=== PATIENT | female | born 1980 | race Caucasian/White ===

== ENCOUNTER → 2016-07-19 | Outpatient (CLI) | payer BC ==
[2015-11-18 09:02] VITALS: BP 105/68
[~2016-07-19] MED LIST: ALPR1TAB2 PO; CYCL-331 PO; FLUT9.9S NS; GABA-586 PO; GABA600T PO; HYDR-2758 PO; LISD40CA3 PO; MELA3TAB2 PO; OMEP20CA9 PO; ONDA4TAB7 PO; ROPI0.5T PO; TRAM50TA PO; VENL75CA PO
--- NOTE | 2016-07-19 11:59 | RAD ---
Chest, 2 views, 07/19/2016: History: Low blood pressure, chest pain Comparison is made to a study from 11/15/2015. The heart size and pulmonary vascularity are normal. The lungs are clear. There is no evidence of pleural fluid. IMPRESSION: No acute cardiopulmonary abnormality is detected.
== END | disposition home or self-care (01) ==
LOC: DXRADRC 07:46
PROVIDERS: ATTEND Physician Assistant Medical
DX: R07.9 Chest pain, unspecified (principal); I95.9 Hypotension, unspecified
CPT/HCPCS: 71020

== ENCOUNTER → 2017-01-09 | Outpatient (CLI) | payer OTHER ==
[2015-11-18 09:02] VITALS: BP 105/68
--- NOTE | 2017-01-09 12:11 | RAD ---
Indication: Pain in the lateral aspect of the left foot. Time of exam 11:56 AM The metatarsals are intact. The phalanges are intact. The midfoot and hindfoot are unremarkable apart from a small plantar calcaneal spur. No fractures are seen. Impression: No acute bony abnormality is detected.
== END | disposition home or self-care (01) ==
LOC: RAD 11:40
PROVIDERS: ATTEND Physician Assistant Medical
DX: M77.32 Calcaneal spur, left foot (principal); F17.200 Nicotine dependence, unspecified, uncomplicated; Z72.89 Other problems related to lifestyle
CPT/HCPCS: 73620

== ENCOUNTER → 2018-03-05 | Outpatient (CLI) | payer OTHER ==
[2015-11-18 09:02] VITALS: BP 105/68
[~2018-03-05] MED LIST changes: +HYDR-2155 PO; -HYDR-2758 PO
--- NOTE | 2018-03-05 16:48 | RAD ---
RS Compliance Statement: One or more of the following individualized dose reduction techniques were utilized for this examination: 1. Automated exposure control 2. Adjustment of the mA and/or kV according to patient size 3. Use of iterative reconstruction technique CT maxillofacial without contrast March 05, 2018 INDICATION: Chronic sinusitis. Antibiotics for one month. History of sinus surgery with septoplasty. COMPARISON: None available TECHNIQUE: Multiple axial CT images of the paranasal sinuses were obtained without venous contrast. Coronal and sagittal reformats are provided. FINDINGS: No suspicious amount is identified involving the visualized portions of brain parenchyma and posterior fossa. Orbits are normal in appearance. Globes are spherical and contour. No intraconal or extraconal mass is identified. There is a small mucus retention cyst in left maxillary sinus measuring 8 mm. Maxillary antrostomy changes are identified with infundibulectomy and uncinectomy. Nasal septum is predominantly midline. Nasal bones are intact. Skull base is intact. No osseous erosions are identified. Sphenoid sinuses are well aerated. Ethmoid air cells are well aerated. Mastoid air cells are well aerated. Temporomandibular joints are well aligned. IMPRESSION: Postoperative changes are identified from sinus decompression. There is a small mucus retention cyst in the left maxillary sinus. Electronically signed by: Cathleen Avila MD (03/05/2018 4:43 PM) [id number]
== END | disposition home or self-care (01) ==
LOC: CT 16:01
PROVIDERS: ATTEND Physician Assistant Medical
DX: J32.9 Chronic sinusitis, unspecified (principal); J34.1 Cyst and mucocele of nose and nasal sinus
CPT/HCPCS: 70486

== ENCOUNTER → 2018-07-22 | Outpatient (CLI) | payer OTHER ==
[2015-11-18 09:02] VITALS: BP 105/68
[~2018-07-22] MED LIST changes: +OMEP20CA10 PO; -OMEP20CA9 PO
[2018-07-22 14:57] LABS: BASO % 0 % (0-3); EOS # 0.2 x10^3/uL (0.0-0.7); EOS % 2 % (0-3); HEMOGLOBIN 14.8 g/dL (12.0-15.5); LYMPH # 2.3 x10^3/uL (1.0-4.8); LYMPH % 28 % (24-48); MEAN CORPUSCULAR HEMOGLOBIN 31 pg (25-35); MEAN CORPUSCULAR HGB CONC 34 g/dL (31-37); MEAN CORPUSCULAR VOLUME 92 fL (79-100); MONO # 0.4 x10^3/uL (0.0-1.1); MONO % 5 % (0-9); NEUT # 5.3 x10^3uL (1.8-7.7); NEUT % 64 % (31-73); PLATELET COUNT 324 x10^3/uL (140-400); RED BLOOD COUNT 4.81 x10^6/uL (3.50-5.40); WHITE BLOOD COUNT 8.2 x10^3/uL (4.0-11.0)
[2018-07-22 15:07] LABS: ALBUMIN 4.2 g/dL (3.4-5.0); ALBUMIN/GLOBULIN RATIO 1.2 (1.0-1.7); CALCIUM 9.3 mg/dL (8.5-10.1); CREATININE 0.6 mg/dL (0.6-1.0); GFR 111.9; MAGNESIUM 2.2 mg/dL (1.8-2.4); POTASSIUM 3.9 mmol/L (3.5-5.1); TOTAL BILIRUBIN 0.4 mg/dL (0.2-1.0); TOTAL PROTEIN 7.8 g/dL (6.4-8.2)
== END | disposition home or self-care (01) ==
LOC: PMG 14:12
PROVIDERS: ATTEND Registered Nurse
DX: R00.0 Tachycardia, unspecified (principal)
CPT/HCPCS: 36415; 80053; 83735; 85025

== ENCOUNTER → 2018-07-24 | Outpatient (CLI) | payer OTHER ==
[2015-11-18 09:02] VITALS: BP 105/68
[2018-07-24 13:11] LABS: CALCIUM 9.6 mg/dL (8.5-10.1); CREATININE 0.6 mg/dL (0.6-1.0); GFR 111.9; POTASSIUM 3.9 mmol/L (3.5-5.1)
== END | disposition home or self-care (01) ==
LOC: LAB 12:35
PROVIDERS: ATTEND Registered Nurse
DX: R89.9 Unspecified abnormal finding in specimens from other organs, systems and tissues (principal)
CPT/HCPCS: 36415; 80048

== ENCOUNTER → 2019-05-27 | Outpatient (CLI) | payer BC ==
[2015-11-18 09:02] VITALS: BP 105/68
[~2019-05-27] MED LIST changes: -MELA3TAB2 PO; +MELA3TAB4 PO; -OMEP20CA10 PO; +OMEP20CA16 PO
--- NOTE | 2019-05-27 10:53 | RAD ---
SHOULDER 2+V RIGHT DATE: 05/27/2019 12:00 AM INDICATION: Shoulder pain COMPARISON: None. FINDINGS: Bones: There is no evidence of acute fracture or dislocation. Joints: Mild degenerative changes of the acromioclavicular joint. Glenohumeral joint is congruent. The acromiohumeral distance is not narrowed. Miscellaneous: No abnormal soft tissue calcifications in the shoulder. IMPRESSION: No acute osseous abnormality. Mild AC joint degenerative changes. Electronically signed by: Timoteo Rodrgíuez MD (05/27/2019 10:50 AM) [id number]
--- NOTE | 2019-05-27 11:04 | RAD ---
CERVICAL SPINE 2-3V DATE: 05/27/2019 12:00 AM INDICATION: Neck pain COMPARISON: None. FINDINGS: The cervical spine is visualized to the level of the cervicothoracic junction on the lateral views. Bones/Alignment: No evidence of acute fracture. There is no listhesis. Normal alignment of the lateral masses of C1 on C2. Joints: Mild degenerative disc disease. The facets are normally aligned. Soft tissue: No significant prevertebral soft tissue swelling. IMPRESSION: Mild cervical spondylosis. Electronically signed by: Timoteo Rodríguez MD (05/27/2019 11:01 AM) [id number]
== END | disposition home or self-care (01) ==
LOC: RAD 10:27
PROVIDERS: ATTEND Registered Nurse
DX: M47.812 Spondylosis without myelopathy or radiculopathy, cervical region (principal); M19.011 Primary osteoarthritis, right shoulder; M50.30 Other cervical disc degeneration, unspecified cervical region
CPT/HCPCS: 72040; 73030

== ENCOUNTER → 2019-07-07 | Outpatient (CLI) | payer BC ==
[2015-11-18 09:02] VITALS: BP 105/68
--- NOTE | 2019-07-07 17:20 | RAD ---
EXAM: BILATERAL DIGITAL DIAGNOSTIC MAMMOGRAPHY and targeted left breast ultrasound.. HISTORY: 39-year-old woman presenting with a palpable lump in the lateral left breast that by the time of presentation has markedly decreased in size, barely detectable on self exam now.. TECHNIQUE: Bilateral full field digital images were obtained in CC and MLO projections as well as implant displaced views. 2-D and 3-D technique was utilized. Computer-aided detection was applied. Targeted ultrasound of the area of concern in the posterior upper outer left breast was also performed. COMPARISON: Limited left breast ultrasound of May 27, 2004. COMPOSITION: B. There are scattered areas of fibroglandular density. FINDINGS: There are no suspicious masses, microcalcifications or architectural distortion. Bilateral subpectoral saline implants are partially imaged. No mammographic correlate to the area of palpable concern in the lateral left breast is seen but the marker identifying the area of clinical concern is not satisfactorily imaged. Targeted ultrasound was therefore pursued in further evaluation. Targeted ultrasound of the left breast in the area of concern identified at the 3:00 position 10 cm from the nipple a sonographically benign 8 mm lymph node but otherwise no sonographic findings. Incidentally, this approximates the area that was previously imaged by ultrasound 15 years ago. BI-RADS CATEGORY: 2: Benign. RECOMMENDATION: 1. Recommend clinical management of the area of patient's reported palpable concern which may include biopsy if there are any clinically suspicious findings. In the absence of any clinically suspicious findings, recommend routine screening next due in one year. The patient and to determine the systemic targeted for next mammogram. Electronically signed by: Earlene Vasquez MD (07/07/2019 5:17 PM) [id number]
== END ==
LOC: MAMMO 12:54
PROVIDERS: ATTEND Family Medicine
DX: N63.42 Unspecified lump in left breast, subareolar (principal)
CPT/HCPCS: 76641; 77066; G0279; 77062

== ENCOUNTER 2020-01-21 12:54 | Emergency (ER) | payer BC ==
[~2020-01-21] VITALS: Ht 157.5 cm; Wt 62.0 kg
[2020-01-21 13:29] LABS: BASO % 0 % (0-3); EOS # 0.2 x10^3/uL (0.0-0.7); EOS % 3 % (0-3); HEMATOCRIT 39.7 % (36.0-47.0); HEMOGLOBIN 13.4 g/dL (12.0-15.5); LYMPH # 1.8 x10^3/uL (1.0-4.8); LYMPH % 26 % (24-48); MEAN CORPUSCULAR HEMOGLOBIN 32 pg (25-35); MEAN CORPUSCULAR HGB CONC 34 g/dL (31-37); MEAN CORPUSCULAR VOLUME 93 fL (79-100); MONO # 0.4 x10^3/uL (0.0-1.1); MONO % 6 % (0-9); NEUT # 4.5 x10^3uL (1.8-7.7); NEUT % 65 % (31-73); PLATELET COUNT 318 x10^3/uL (140-400); RED BLOOD COUNT 4.26 x10^6/uL (3.50-5.40); RED CELL DISTRIBUTION WIDTH 13.2 % (11.5-14.5); WHITE BLOOD COUNT 6.8 x10^3/uL (4.0-11.0)
--- NOTE | 2020-01-21 13:29 | RAD ---
PA and lateral views of the chest. Comparison: 07/19/2016. Indication: Shortness of breath Findings: The heart size is normal. No pneumothorax or effusion. No air space or interstitial disease. The bon y structures are intact. Impression: 1. No acute cardiopulmonary process. Electronically signed by: Jethro Foster MD (01/21/2020 1:27 PM) [id number]
[2020-01-21 13:35] LABS: CALCIUM 8.6 mg/dL (8.5-10.1); CREATININE 0.6 mg/dL (0.6-1.0); GFR 111.3; POTASSIUM 3.7 mmol/L (3.5-5.1)
[2020-01-21 13:41] LABS: ALBUMIN 3.9 g/dL (3.4-5.0); ALBUMIN/GLOBULIN RATIO 1.2 (1.0-1.7); TOTAL BILIRUBIN 0.2 mg/dL (0.2-1.0); TOTAL PROTEIN 7.2 g/dL (6.4-8.2)
--- NOTE | 2020-01-21 13:58 | PHYS DOC ---
Past History Past Medical History: Anxiety, Depression, Other Additional Past Medical Histor: POTS Past Surgical History: Hysterectomy, Other Smoking: Non-smoker Alcohol Use: Occasionally Drug Use: None Adult General Chief Complaint Chief Complaint: Palpitations HPI HPI Patient is 39-year-old female past medical history of pots syndrome who presents to the emergency room after having an episode of tachycardia with syncope. This is happened to her previously. Typically when this happens she requires IV fluids. She called her fish and game warden today who recommended she come to the emergency room to get IV fluids and work-up to ensure her electrolytes were normal. They will see her in clinic later this week. She denies any other symptoms. She has been having intermittent palpitations for the last couple days which is not unusual for her. She states she is typically able to control her syndrome without difficulty. Review of Systems Review of Systems Complete ROS is negative unless otherwise documented in HPI Current Medications Current Medications Current Medications Medications (Trade) Dose Ordered Sig/Lucy Start Time Stop Time Status Last Admin Dose Admin Sodium Chloride 1,000 ml @ 1,000 mls/hr 1X ONCE 01/21/20 14:00 01/21/20 14:59 Allergies Allergies Allergies Coded Allergies Type Severity Reaction Last Updated Verified codeine Allergy Intermediate HIVES 09/23/13 Yes latex Allergy Intermediate HIVES 09/23/13 Yes Physical Exam Physical Exam General: Awake, alert, NAD. Well Nourished, well hydrated. Cooperative HEENT: Atraumatic, EOMI, PERRL, airway patent, moist oral mucosa Neck: Supple, trachea midline Respiratory: CTA bilaterally, normal effort, no wheezing/crackles CV: RRR, no murmur, cap refill <2 GI: Soft, nondistended, nontender, no masses MSK: No obvious deformities Skin: Warm, dry, intact Neuro: A&O x3, speech NL, sensory and motor grossly intact, no focal deficits Psych: Normal affect, normal mood, not suicidal or homicidal Current Patient Data Vital Signs Vital Signs Date Time Temp Pulse Resp B/P (MAP) Pulse Ox O2 Delivery O2 Flow Rate FiO2 01/21/20 13:25 97.9 107 18 123/83 (96) 99 Room Air Lab Results Laboratory Tests Test 01/21/20 13:08 White Blood Count 6.8 x10^3/uL (4.0-11.0) Red Blood Count 4.26 x10^6/uL (3.50-5.40) Hemoglobin 13.4 g/dL (12.0-15.5) Hematocrit 39.7 % (36.0-47.0) Mean Corpuscular Volume 93 fL (79-100) Mean Corpuscular Hemoglobin 32 pg (25-35) Mean Corpuscular Hemoglobin Concent 34 g/dL (31-37) Red Cell Distribution Width 13.2 % (11.5-14.5) Platelet Count 318 x10^3/uL (140-400) Neutrophils (%) (Auto) 65 % (31-73) Lymphocytes (%) (Auto) 26 % (24-48) Monocytes (%) (Auto) 6 % (0-9) Eosinophils (%) (Auto) 3 % (0-3) Basophils (%) (Auto) 0 % (0-3) Neutrophils # (Auto) 4.5 x10^3uL (1.8-7.7) Lymphocytes # (Auto) 1.8 x10^3/uL (1.0-4.8) Monocytes # (Auto) 0.4 x10^3/uL (0.0-1.1) Eosinophils # (Auto) 0.2 x10^3/uL (0.0-0.7) Basophils # (Auto) 0.0 x10^3/uL (0.0-0.2) Sodium Level 138 mmol/L (136-145) Potassium Level 3.7 mmol/L (3.5-5.1) Chloride Level 103 mmol/L (98-107) Carbon Dioxide Level 26 mmol/L (21-32) Anion Gap 9 (6-14) Blood Urea Nitrogen 5 mg/dL (7-20) L Creatinine 0.6 mg/dL (0.6-1.0) Estimated GFR (Cockcroft-Gault) 111.3 BUN/Creatinine Ratio 8 (6-20) Glucose Level 97 mg/dL (70-99) Calcium Level 8.6 mg/dL (8.5-10.1) Total Bilirubin 0.2 mg/dL (0.2-1.0) Aspartate Amino Transferase (AST) 14 U/L (15-37) L Alanine Aminotransferase (ALT) 30 U/L (14-59) Alkaline Phosphatase 64 U/L (46-116) Total Protein 7.2 g/dL (6.4-8.2) Albumin 3.9 g/dL (3.4-5.0) Albumin/Globulin Ratio 1.2 (1.0-1.7) EKG EKG [] Radiology/Procedures Radiology/Procedures [] Heart Score Risk Factors: Risk Factors: DM, Current or recent (<one month) smoker, HTN, HLP, family history of CAD, obesity. Risk Scores: Risk Factors: DM, Current or recent (<one month) smoker, HTN, HLP, family history of CAD, obesity. Course & Med Decision Making Course & Med Decision Making Pertinent Labs and Imaging studies reviewed. (See chart for details) Patient is 39-year-old female who has a history of pot syndrome who presents to the emergency room after having an episode of palpitations and syncope. This is not common for her. She follows with a fish and game warden. Patient is well- appearing. We will give her IV fluids as she states this is her typical treatment. She will follow up with cardiology next week. Electrolytes and cardiac work-up were negative. Patient's test results and vitals while in the ED were fully reviewed and discussed with the patient. Patient is stable and at this time does not need admission to the hospital. We have discussed strict return precautions and the importance of following up with their Primary Care Physician. Patient stated understanding and was given an opportunity to ask any questions. Patient is in agreement with plan. Dragon Disclaimer Dragon Disclaimer This electronic medical record was generated, in whole or in part, using a voice recognition dictation system. Departure Departure: Impression: Primary Impression: POTS (postural orthostatic tachycardia syndrome) Disposition: 01 DC HOME SELF CARE/HOMELESS Condition: STABLE Referrals: DELIA WEAVER (PCP) Patient Instructions: Postural Orthostatic Tachycardia Syndrome JOLIE MOSES MD Jan 21, 2020 13:58
[2020-01-21] MEDS ORDERED: IV NORMAL SALINE 1,000ML 1,000 ML IV ONE (14:00)
[2020-01-21 14:19] LABS: BACTERIA,URINE 0 /HPF (0-FEW); BILIRUBIN,URINE NEG (NEG); CLARITY,URINE CLEAR; COLOR,URINE YELLOW; GLUCOSE,URINE NEG (NEG); NITRITE,URINE NEG (NEG); RBC,URINE 0 /HPF (0-2); SQUAMOUS EPITHELIAL CELL,UR OCC /LPF; WBC,URINE 0 /HPF (0-4)
[2020-01-21 14:20] LABS: UROBILINOGEN,URINE 0.2 mg/dL (0.2 mg/dL)
--- NOTE | 2020-01-21 15:28 | EKG ---
[address] [address] Test Date: 2020-01-21 Test Time: 13:01:43 Pat Name: RAN HORTON Department: Room: Gender: F Tube Room Cashier: MADAI : 1980 Requested By: JOLIE MOSES Order Number: [id number] Reading MD: Measurements Intervals [place] Rate: 95 P: 61 [place]: 106 QRS: 85 QRSD: 88 T: 48 QT: 348 QTc: 441 Interpretive Statements SINUS RHYTHM R-S TRANSITION ZONE IN V LEADS DISPLACED TO THE LEFT S1,S2,S3 PATTERN OTHERWISE NORMAL ECG RI6.02 No previous ECG available for comparison
[2020-01-21 16:00] VITALS: BP 128/67
== END 2020-01-21 16:00 | disposition home or self-care (01) ==
LOC: ER 12:54
DX: I49.8 Other specified cardiac arrhythmias (principal); R55 Syncope and collapse; F41.9 Anxiety disorder, unspecified; F32.9 Major depressive disorder, single episode, unspecified; Z88.5 Allergy status to narcotic agent; Z91.040 Latex allergy status
CPT/HCPCS: 36415; 71046; 80053; 81001; 85025; 93005; 96360; 96361; 99285; J7030

== ENCOUNTER 2021-02-28 09:27 | Emergency (ER) | payer BC, OTHER ==
[~2021-02-28] VITALS: Ht 157.5 cm; Wt 62.0 kg
[2021-02-28 09:27] VITALS: BP 99/48
[~2021-02-28 09:27] MED LIST changes: -CYCL-331 PO; +CYCL10TA19 PO
--- NOTE | 2021-02-28 09:44 | RAD ---
EXAM: Chest, single view. HISTORY: Chest pain. COMPARISON: 01/21/2020 FINDINGS: A frontal view of the chest is obtained. There is no infiltrate, pleural effusion or pneumo thorax. The heart is normal in size. There are incidental implanted breast prostheses. IMPRESSION: No acute pulmonary finding. Electronically signed by: Valerie Charles MD (02/28/2021 9:42 AM) [id number]
--- NOTE | 2021-02-28 09:51 | EKG ---
[address] [address] Test Date: 2021-02-28 Test Time: 09:33:09 Pat Name: RAN HORTON Department: Room: Gender: F Circuit Recorder: GUNJAN : 1980 Requested By: RAMON JEREZ Order Number: [id number] Reading MD: Yossi Rosales MD Measurements Intervals [place] Rate: 86 P: 0 PA: 102 QRS: 90 QRSD: 86 T: 24 QT: 358 QTc: 431 Interpretive Statements SINUS RHYTHM Electronically Signed On 02-28-2021 15:32:18 SCALE ATTENDANT by Yossi Rosales MD
[2021-02-28 09:58] LABS: BASO # 0.1 x10^3/uL (0.0-0.2); BASO % 1 % (0-3); EOS # 0.3 x10^3/uL (0.0-0.7); EOS % 3 % (0-3); HEMATOCRIT 43.6 % (36.0-47.0); HEMOGLOBIN 14.3 g/dL (12.0-15.5); LYMPH # 2.1 x10^3/uL (1.0-4.8); LYMPH % 21 % (24-48); MEAN CORPUSCULAR HEMOGLOBIN 31 pg (25-35); MEAN CORPUSCULAR HGB CONC 33 g/dL (31-37); MEAN CORPUSCULAR VOLUME 94 fL (79-100); MONO # 0.5 x10^3/uL (0.0-1.1); MONO % 5 % (0-9); NEUT % 70 % (31-73); PLATELET COUNT 318 x10^3/uL (140-400); RED BLOOD COUNT 4.64 x10^6/uL (3.50-5.40); RED CELL DISTRIBUTION WIDTH 13.4 % (11.5-14.5); WHITE BLOOD COUNT 10.1 x10^3/uL (4.0-11.0)
--- NOTE | 2021-02-28 09:58 | PHYS DOC ---
Past History Past Medical History: Anxiety, Depression, Other Additional Past Medical Histor: POTS Past Surgical History: Hysterectomy, Other Smoking: Non-smoker Alcohol Use: Occasionally Drug Use: None General Adult EDM: Chief Complaint: CHEST PAIN HPI: HPI: 40-year-old female presents with chest pain and shortness of breath. The patient had COVID-19 about 2 weeks ago. She started having increased shortness of breath and central chest discomfort the last couple of days. It was most prominent last night and continues today. Is moderate in intensity. She is most concerned about her oxygen level decreasing with any exertion. She has a pulse oximeter at home. She had readings in the 80s. Improved back to the mid to upper 90s with rest. Her mother of a pulmonary embolus at a similar age. She has never had a history of DVT or PE. Patient also has a history of anxiety. She denies fever or chills. Review of Systems: Review of Systems: Constitutional: Denies fever or chills Eyes: Denies change in visual acuity HENT: Denies nasal congestion or sore throat Respiratory: shortness of breath Cardiovascular: Chest pain GI: Denies abdominal pain, nausea, vomiting, bloody stools or diarrhea : Denies dysuria Musculoskeletal: Denies back pain or joint pain Integument: Denies rash Neurologic: Denies headache, focal weakness or sensory changes Endocrine: Denies polyuria or polydipsia Lymphatic: Denies swollen glands Psychiatric: Denies depression or anxiety Allergies: Allergies: Allergies Coded Allergies Type Severity Reaction Last Updated Verified codeine Allergy Intermediate HIVES 09/23/13 Yes latex Allergy Intermediate HIVES 09/23/13 Yes Physical Exam: PE: Constitutional: Well developed, well nourished, no acute distress, non-toxic appearance. [] HENT: Normocephalic, atraumatic, bilateral external ears normal, oropharynx moist, no oral exudates, nose normal. [] Eyes: PERRLA, EOMI, conjunctiva normal, no discharge. [] Neck: Normal range of motion, no tenderness, supple, no stridor. [] Cardiovascular: Heart rate 86, regular rhythm, no murmur [] Lungs & Thorax: Bilateral breath sounds clear to auscultation [] Abdomen: Bowel sounds normal, soft, no tenderness, no masses, no pulsatile masses. [] Skin: Warm, dry, no erythema, no rash. [] Back: No tenderness, no CVA tenderness. [] Extremities: No tenderness, no cyanosis, no clubbing, ROM intact, no edema. [] Neurologic: Alert and oriented X 3, normal motor function, normal sensory function, no focal deficits noted. [] Psychologic: Affect normal, judgement normal, mood anxious. [] EKG: EKG: Sinus rhythm, rate 86, normal axis, no ST elevation or depression. [] Radiology/Procedures: Radiology/Procedures: [] Impressions: EXAM: Chest, single view. HISTORY: Chest pain. COMPARISON: 01/21/2020 FINDINGS: A frontal view of the chest is obtained. There is no infiltrate, pleural effusion or pneumothorax. The heart is normal in size. There are incidental implanted breast prostheses. IMPRESSION: No acute pulmonary finding. Electronically signed by: Valerie Wesley MD (02/28/2021 9:42 AM) [id number] DICTATED AND SIGNED BY: VALERIE WESLEY MD DATE: 02/28/21 0941 CC: RAMON JEREZ DO; DELIA WEAVER ~MTH0 0 CTA CHEST INDICATION: SOB, hypoxia with exertion Comparison: Chest radiograph 02/28/2021. TECHNIQUE: Following the uneventful administration of intravenous contrast, 100 cc Omnipaque 350, axial CT sections were obtained through the lungs and upper abdomen. Multiplanar reconstructions and MIP images were obtained. PQRS compliance statement: One or more of the following individualized dose reduction techniques were utilized for this examination: 1. Automated exposure control 2. Adjustment of the mA and/or kV according to patient size 3. Use of iterative reconstruction technique FINDINGS: Lungs and Airways: No pulmonary mass or consolidation. No abnormality of the central airways. Pleura: The pleural spaces are normal. Heart and Mediastinum: The visualized thyroid is normal in size and attenuation. No axillary or supraclavicular lymphadenopathy. No mediastinal, hilar or retrocrural lymphadenopathy. The heart and pericardium are within normal limits. The great vessels of the thorax are normal. Abdomen: Limited images through the upper abdomen show no abnormality of the visualized organs. Bones and Soft Tissues: The visualized bones and chest wall soft tissues are within normal limits. IMPRESSION: 1. No evidence of pulmonary thromboembolic disease. 2. No pulmonary mass or consolidation Electronically signed by: Sean Rodríguez MD (02/28/2021 10:57 AM) [id number] DICTATED AND SIGNED BY: SEAN RODRÍGUEZ MD DATE: 02/28/21 1048 CC: RAMON JEREZ DO; DELIA WEAVER ~MTH0 0 Heart Score: C/O Chest Pain: Yes HEART Score for Chest Pain: HEART Score for Chest Pain Response (Comments) Value History Slighlty/Non-Suspicious 0 ECG Nonspecific Repolarizatio 1 Age < 45 0 Risk Factors 1 or 2 Risk Factors 1 Troponin < Normal Limit 0 Total 2 Risk Factors: Risk Factors: DM, Current or recent (<one month) smoker, HTN, HLP, family history of CAD, obesity. Risk Scores: Score 0 - 3: 2.5% MACE over next 6 weeks - Discharge Home Score 4 - 6: 20.3% MACE over next 6 weeks - Admit for Clinical Observation Score 7 - 10: 72.7% MACE over next 6 weeks - Early Invasive Strategies Course & Med Decision Making: Course & Med Decision Making Pertinent Labs and Imaging studies reviewed. (See chart for details) The patient's EKG is negative for acute findings. Her chest x-ray is negative for acute findings. Her labs are unremarkable. Her troponin is negative. Given her hypoxia at home and recent Covid diagnosis, I will do a CTA of the chest. CTA of the chest was negative for pulmonary embolus or other significant finding. This is likely post Covid mild hypoxia and shortness of breath. I have seen this in other patients. If she moderates her activity, she feels fine and her oxygen levels are normal. I told her she may just need to take it easy for a few more weeks or longer. Patient is greatly reassured. I will give her a single dose of Decadron p.o. and albuterol MDI. She is stable for discharge at this time. [] Dragon Disclaimer: Dragon Disclaimer: This electronic medical record was generated, in whole or in part, using a voice recognition dictation system. Departure Departure: Impression: Primary Impression: Persistent dyspnea after COVID-19 Disposition: 01 HOME / SELF CARE / HOMELESS Condition: STABLE Referrals: DELIA WEAVER (PCP) Patient Instructions: Upper Respiratory Infection, Adult, [id number] RAMON JEREZ DO Feb 28, 2021 09:58
[2021-02-28] MEDS ORDERED: MORPHINE SULFATE 4 MG/ML DISP.SYRIN. IV ONE (10:30)
[2021-02-28] MEDS ORDERED: IOHEXOL 350 MG/ML 100 ML VIAL. IV ONE (10:45)
[2021-02-28] MEDS ORDERED: CONTRAST GIVEN. MC PRN (10:45)
[2021-02-28 10:59] LABS: CALCIUM 8.7 mg/dL (8.5-10.1); CREATININE 0.5 mg/dL (0.6-1.0); GFR 136.6; POTASSIUM 4.4 mmol/L (3.5-5.1)
[2021-02-28] MEDS ORDERED: LORazepam 1 MG TABLET PO ONE (11:00)
--- NOTE | 2021-02-28 11:00 | RAD ---
CTA CHEST INDICATION: SOB, hypoxia with exertion Comparison: Chest radiograph 02/28/2021. TECHNIQUE: Following the uneventful administration of intravenous contrast, 100 cc Omnipaque 350, axi al CT sections were obtained through the lungs and upper abdomen. Multiplanar reconstructions and MIP images were obtained. PQRS compliance statement: One or more of the following individualized dose reduction techniques were utilized for this examinat ion: 1. Automated exposure control 2. Adjustment of the mA and/or kV according to patient size 3. Use of iterative reconstruction technique FINDINGS: Lungs and Airways: No pulmonary mass or consolidation. No abnormality of the central airways. Pleura: The pleural spaces are normal. Heart and Mediastinum: The visualized thyroid is normal in size and attenuation. No axillary or supra clavicular lymphadenopathy. No mediastinal, hilar or retrocrural lymphadenopathy. The heart and peric ardium are within normal limits. The great vessels of the thorax are normal. Abdomen: Limited images through the upper abdomen show no abnormality of the visualized organs. Bones and Soft Tissues: The visualized bones and chest wall soft tissues are within normal limits. IMPRESSION: 1. No evidence of pulmonary thromboembolic disease. 2. No pulmonary mass or consolidation Electronically signed by: Timoteo Rodríguez MD (02/28/2021 10:57 AM) [id number]
[2021-02-28 11:05] LABS: ALBUMIN 3.7 g/dL (3.4-5.0); TOTAL BILIRUBIN 0.3 mg/dL (0.2-1.0); TOTAL PROTEIN 7.3 g/dL (6.4-8.2)
[2021-02-28] MEDS ORDERED: ALBUTEROL SULFATE 8GM INHALER. INH ONE (11:45)
[2021-02-28] MEDS ORDERED: DEXAMETHASONE SOD PHOS 10 MG/ML VIAL. PO ONE (11:45)
== END 2021-02-28 12:00 | disposition home or self-care (01) ==
LOC: ER 09:27
DX: R06.00 Dyspnea, unspecified (principal); U09.9 Post COVID-19 condition, unspecified; Z88.5 Allergy status to narcotic agent; Z91.040 Latex allergy status
CPT/HCPCS: 36415; 71045; 71275; 80053; 84484; 85025; 93005; 94640; 96374; 99285; J1100; J2270; Q9967; 94664

== ENCOUNTER → 2021-04-01 | Outpatient (CLI) | payer OTHER ==
--- NOTE | 2021-04-01 13:56 | RAD ---
CT MAXILLOFACIAL WITHOUT CONTRAST History: Reason: OXYGEN DEPENDENT SINCE COVID LAST MONTH, HX OF SINUS SURG. VACC. / Spl. Instructions : / History: Comparison: None. Technique: Noncontrast CT imaging was performed of the sinuses. Coronal and sagittal reconstructions were performed. Exposure: One or more of the following individualized dose reduction techniques were utilized for thi s examination: 1. Automated exposure control 2. Adjustment of the mA and/or kV according to patient size 3. Use of iterative reconstruction technique. Findings: Small left maxillary sinus mucous retention cysts. Patent sphenoid and frontal sinuses. Minimal maxil gui and ethmoid sinus mucosal thickening. Mastoid air cells are clear. Postoperative changes of uncinectomies, left middle turbinectomy and ethmoid bullectomies. Patent ant rostomy defects. Patent frontoethmoidal recesses. Patent sphenoid ostia. Mild rightward nasal septal deviation. Lobulated appearance of the nasal turbinates. No acute fractur e. Orbits are unremarkable. Imaged intracranial contents are unremarkable. Impression: 1. Postoperative changes paranasal sinuses with minimal sinus disease. Electronically signed by: Giovanny Simmons DO (04/01/2021 1:53 PM) [facility]
== END ==
LOC: CT 11:50
PROVIDERS: ATTEND Physician Assistant Medical
DX: J34.2 Deviated nasal septum (principal); J34.1 Cyst and mucocele of nose and nasal sinus; J34.89 Other specified disorders of nose and nasal sinuses
CPT/HCPCS: 70486